=== PATIENT | female | born 1975 | race Hispanic/Latino ===

== ENCOUNTER 2018-07-02 08:46 | Emergency (ER) | payer OTHER ==
[~2018-07-02] VITALS: Ht 162.6 cm; Wt 90.7 kg
[2018-07-02] MEDS ORDERED: SODIUM CHLORIDE 0.9% 1000ML 1,000 ML IV SCH ×2 (09:00)
[2018-07-02] MEDS ORDERED: ACETAMINOPHEN 325 MG TAB PO ONE (09:00)
--- NOTE | 2018-07-02 09:33 | Diagnostic Imaging Report ---
Examination: Single AP view of the chest. COMPARISON: None. INDICATION: Cough and fever x2 days DISCUSSION: Lines/tubes: None. Lungs: The lungs are well inflated and clear. There is no evidence of pneumonia or pulmonary edema. Pleura: There is no pleural effusion or pneumothorax. Heart and mediastinum: The heart and the mediastinum are unremarkable. Bones and soft tissues: No acute bony abnormalities. IMPRESSION: No acute cardiopulmonary abnormality. No consolidative pneumonia. Signed by: Dr. Gage Awad M.D. on 07/02/2018 9:30 AM
[2018-07-02] MEDS ORDERED: TESSALON PERLE100 MG PO (10:03)
[2018-07-02] MEDS ORDERED: TAMIFLU75 MG PO (10:03)
[2018-07-02 11:27] VITALS: BP 118/74
== END 2018-07-02 11:29 | disposition home or self-care (01) ==
LOC: FSED 08:46
DX: R50.9 Fever, unspecified (principal); R05 Cough; R53.1 Weakness; J11.1 Influenza due to unidentified influenza virus with other respiratory manifestations; J40 Bronchitis, not specified as acute or chronic; B34.9 Viral infection, unspecified
CPT/HCPCS: 71045; 80053; 81003; 81025; 83605; 84484; 85025; 87040; 87400; 93005; 99284